=== PATIENT | female | born 1950 | race African-American/Black ===

== ENCOUNTER 2018-12-17 22:26 | Emergency (ER) | payer MEDICARE, MEDICAID ==
[~2018-12-17] VITALS: Ht 160 cm; Wt 50.8 kg
[2018-12-18] MEDS ORDERED: IBUPROFEN 600MG TABLET PO ONE (00:45)
[2018-12-18 01:17] VITALS: BP 132/74
== END 2018-12-18 05:28 | disposition home or self-care (01) ==
LOC: ER 22:26
DX: J06.9 Acute upper respiratory infection, unspecified (principal); F12.90 Cannabis use, unspecified, uncomplicated
CPT/HCPCS: 71045; 99283

== ENCOUNTER 2020-02-17 22:57 | Emergency (ER) | payer MEDICARE, MEDICAID ==
[~2020-02-17] VITALS: Ht 162.6 cm; Wt 57.0 kg
[2020-02-17] MEDS ORDERED: FUROSEMIDE 40MG/4ML VIAL IV ONE (23:45)
[2020-02-17 23:57] LABS: BASOPHILS % 0.8 % (0.0-2.0); EOSINOPHILS % 0.7 % (0.0-5.0); HEMATOCRIT. 41.2 % (36.0-48.0); LYMPHOCYTES % 31.4 % (20.0-50.0); MEAN CORPUSCULAR HEMOGLOBIN 35.8 pg (28.0-32.0); MEAN CORPUSCULAR VOLUME 105.5 fL (81.0-99.0); MEAN PLATELET VOLUME 8.4 fl (7.4-10.4); MONOCYTES % 10.5 % (2.0-8.0); NEUTROPHILS % 56.6 % (40.0-76.0); PLATELET 169 x1000/uL (130-400)
[2020-02-18 00:01] LABS: CHLORIDE 107 mEq/L (98-107)
[2020-02-18 00:07] LABS: CLARITY URINE CLEAR (CLEAR); COLOR URINE YELLOW (YELLOW); KETONES URINE NEGATIVE (NEGATIVE); LEUKOCYTE ESTERASE URINE TRACE (NEGATIVE); NITRITE URINE NEGATIVE (NEGATIVE); OCCULT BLOOD URINE NEGATIVE (NEGATIVE); PROTEIN URINE NEGATIVE (NEGATIVE); SPECIFIC GRAVITY URINE 1.017 (1.005-1.030); UROBILINOGEN URINE 0.2 E.U./dL (0.2-1.0)
[2020-02-18 01:31] VITALS: BP 127/79
== END 2020-02-18 02:05 | disposition home or self-care (01) ==
LOC: ER 22:57
DX: I87.8 Other specified disorders of veins (principal)
CPT/HCPCS: 36415; 71045; 80053; 81003; 83880; 85025; 93005; 96374; 99285; J1940